=== PATIENT | male | born 1960 | race African-American/Black ===

== ENCOUNTER 2020-11-22 13:50 | Inpatient (IN) ==
[2020-11-22 17:18] LABS: ABS Eosinophils 0.2 10^3/ul (0-0.6); ABS Lymphocytes 1.3 10^3/ul (1.0-4.8); ABS Monocytes 0.6 10^3/ul (0-0.8); ABS Neutrophils 3.7 10^3/ul (1.5-7.7); Eosinophil % 2.9 %; Hematocrit 29 % (42-52); Hemoglobin 9.3 g/dL (14.0-18.0); Lymphocyte % 21.4 %; Mean Corpuscular HGB Conc 32 g/dL (31-36); Mean Corpuscular Hemoglobin 30 pg (27-31); Mean Corpuscular Volume 93 fL (80-94); Mean Platelet Volume 7.2 fL (7.4-10.4); Nucleated Red Blood Cells % 0.1; Platelet Count 281 10^3/uL (150-450); Red Cell Distribution Width 14 % (10-15); White Blood Count 5.8 10^3/uL (3.5-10.8)
[2020-11-22 18:01] LABS: Albumin 4.6 g/dL (3.2-5.2); Albumin/Globulin Ratio 1.3 (1-3); Calcium 10.1 mg/dL (8.6-10.3); Globulin 3.5 g/dL (2-4); Magnesium 1.7 mg/dL (1.9-2.7); Total Bilirubin 0.3 mg/dL (0.2-1.0); Total Protein 8.1 g/dL (6.4-8.9)
[2020-11-22 18:16] LABS: Potassium 5.1 mmol/L (3.5-5.0)
[2020-11-22 19:18] LABS: Rapid COVID-19 Molecular Undetected (Undetected)
[2020-11-22] MEDS ORDERED: Magnesium Sulfate 2 gm BAG 2 GM/50 ML BAG IVPB ONE (19:39)
[2020-11-22 19:51] LABS: Urine Appearance Clear; Urine Bilirubin Negative (Negative); Urine Blood Negative (Negative); Urine Color Straw; Urine Glucose Negative (Negative); Urine Ketones Negative (Negative); Urine Nitrite Negative (Negative); Urine Protein Negative (Negative); Urine Specific Gravity 1.005 (1.002-1.030); Urine Urobilinogen Negative (Negative)
[2020-11-22] MEDS ORDERED: Dextrose 50% Syringe 50 ml 25 GM/50 ML SYRINGE IV PUSH PRN (19:53)
[2020-11-22 19:56] LABS: Urine Bacteria Absent (Absent); Urine Red Blood Cell Absent (Absent); Urine Squamous Epithelial Cell Present (Absent); Urine White Blood Cell 1+(6-10/hpf) (Absent)
[2020-11-22] MEDS ORDERED: Lactated Ringers 1000 ml BAG 1,000 ML IV SCH ×2 (20:00→21:00)
[2020-11-22] MEDS ORDERED: Enoxaparin 30 MG/0.3 ML SYR SUBCUT SCH (20:00)
[2020-11-22 20:17] LABS: INR 1.08 (0.86-1.15)
[2020-11-22 20:41] LABS: TSH Ultra Thyroid Stim Horm 4.38 mcIU/mL (0.34-5.60)
[2020-11-22] MEDS ORDERED: NS 0.9% 1000 ml BAG 1,000 ML IV SCH (20:45)
[2020-11-22 21:21] LABS: CKMB ng/mL 1.6 ng/mL (0.6-6.3)
[2020-11-22] MEDS: Heparin 5000 UNITS/ML 1 mL VIAL SUBCUT SCH (22:51)
[2020-11-23] MEDS ORDERED: NS 0.9% 1000 ml BAG 1,000 ML IV ONE (02:07)
[2020-11-23] MEDS: Heparin 5000 UNITS/ML 1 mL VIAL SUBCUT SCH ×3 (05:14→21:35)
[2020-11-23 06:02] LABS: Urine Creatinine Concentration 126.08 mg/dL
[2020-11-23 11:15] LABS: ABS Eosinophils 0.2 10^3/ul (0-0.6); ABS Lymphocytes 1.2 10^3/ul (1.0-4.8); ABS Monocytes 0.6 10^3/ul (0-0.8); ABS Neutrophils 3.8 10^3/ul (1.5-7.7); Eosinophil % 3.3 %; Hematocrit 28 % (42-52); Lymphocyte % 19.8 %; Mean Corpuscular HGB Conc 33 g/dL (31-36); Mean Corpuscular Hemoglobin 30 pg (27-31); Mean Corpuscular Volume 93 fL (80-94); Mean Platelet Volume 7.3 fL (7.4-10.4); Platelet Count 271 10^3/uL (150-450); Red Blood Count 2.97 10^6 /uL (4.18-5.48); Red Cell Distribution Width 14 % (10-15); White Blood Count 5.8 10^3/uL (3.5-10.8)
[2020-11-23 13:07] LABS: % Iron Saturation 13 % (15-55); Iron 46 ug/dL (50-212); Total Iron Binding Capacity 351 mcg/dL (250-450); Transferrin 251 mg/dL (203-362); Unsaturated Iron Binding < 336 ug/dL
[2020-11-23 13:16] LABS: Ferritin 122.1 ng/mL (24-336)
[2020-11-23] MEDS ORDERED: Iron Sucrose 200 MG in NS 0.9% 100 ml BAG 100 ML IVPB ONE (15:12)
[2020-11-23] MEDS ORDERED: Lactated Ringers 1000 ml BAG 1,000 ML IV ONE ×2 (15:49→17:33)
[2020-11-23 18:08] LABS: Urine Appearance Clear; Urine Bilirubin Negative (Negative); Urine Blood Negative (Negative); Urine Color Straw; Urine Glucose Negative (Negative); Urine Ketones Negative (Negative); Urine Nitrite Negative (Negative); Urine Protein Negative (Negative); Urine Specific Gravity 1.006 (1.002-1.030); Urine Urobilinogen Negative (Negative)
[2020-11-23 18:15] LABS: Urine Bacteria 2+ (Absent); Urine Red Blood Cell Trace(0-2/hpf) (Absent); Urine Squamous Epithelial Cell Present (Absent); Urine White Blood Cell 2+(11-20/hpf) (Absent)
[2020-11-24] MEDS: Heparin 5000 UNITS/ML 1 mL VIAL SUBCUT SCH ×2 (05:03→16:20)
[2020-11-24 09:28] LABS: ABS Basophils 0.1 10^3/ul (0-0.2); ABS Eosinophils 0.3 10^3/ul (0-0.6); ABS Lymphocytes 1.6 10^3/ul (1.0-4.8); ABS Monocytes 0.5 10^3/ul (0-0.8); ABS Neutrophils 3.1 10^3/ul (1.5-7.7); Eosinophil % 5.3 %; Hematocrit 29 % (42-52); Hemoglobin 9.3 g/dL (14.0-18.0); Lymphocyte % 28.3 %; Mean Corpuscular HGB Conc 32 g/dL (31-36); Mean Corpuscular Hemoglobin 30 pg (27-31); Mean Corpuscular Volume 93 fL (80-94); Mean Platelet Volume 7.1 fL (7.4-10.4); Platelet Count 307 10^3/uL (150-450); Red Blood Count 3.12 10^6 /uL (4.18-5.48); Red Cell Distribution Width 14 % (10-15); White Blood Count 5.6 10^3/uL (3.5-10.8)
[2020-11-24 09:47] LABS: Albumin 4.6 g/dL (3.2-5.2); Albumin/Globulin Ratio 1.2 (1-3); Calcium 10.8 mg/dL (8.6-10.3); Globulin 3.7 g/dL (2-4); Total Bilirubin 0.4 mg/dL (0.2-1.0); Total Protein 8.3 g/dL (6.4-8.9)
[2020-11-24] MEDS ORDERED: Magnesium Hydroxide LIQ 30 ML UDC PO ONE (09:48)
[2020-11-24] MEDS ORDERED: Senna TAB 8.6 mg TAB PO ONE (09:49)
[2020-11-24 09:52] LABS: Potassium 5.1 mmol/L (3.5-5.0)
[2020-11-24] MEDS ORDERED: SODIUM ZIRCONIUM CYCLOSILICATE 10 GM PACKET PO ONE (09:55)
[2020-11-24] MEDS ORDERED: Senna TAB 8.6 mg TAB PO SCH (10:00)
[2020-11-24 12:27] VITALS: BP 125/56
[2020-11-26 12:06] LABS: Albumin 3.7 g/dL (3.4-4.7); Gamma Globulin 1.9 g/dL (0.6-1.6); Total Protein(PEP) 7.9 g/dL (6.3 - 7.9)
[2020-11-28 17:18] LABS: Renin 40 ng/mL/h
[2020-11-29 11:29] LABS: Albumin 2.6 mg/dL; Albumin/Globulin Ratio 0.48; Gamma Globulin 1.8 mg/dL; Protein,Total, Random Urine 8 mg/dL
== END 2020-11-24 16:55 | disposition home or self-care (01) | DRG 683 ==
LOC: ED 13:50 → MED 20:04 → SUATTDRO 20:04 → MED 20:56
PROVIDERS: ADMIT Internal Medicine; ATTEND Internal Medicine

== ENCOUNTER 2022-09-19 07:26 | Observation (INO) ==
[~2022-09-19 07:26] MED LIST: BUPIVACAINE **LIPOSOME/PF 13.3 MG/ML (266MG/ 20ML) VIAL (RESTRICTED) INFIL ONE; Buffered Lidocaine 1% SYRIN 1 ml INTRADERM ONE; Bupivacaine 0.25% SDV 30 ML ONE; Lactated Ringers 1000 ml BAG 1,000 ML IV SCH; Lidocaine 2% PF 5 ML VIAL ONE; Naloxone 0.4 mg VIAL 0.4 mg/ml 1 ml VIAL IV PRN; Ondansetron 4 mg VIAL 2 MG/ML 2 ml VIAL IV PRN; oxyCODONE/Acetamin 5/325 mg TAB PO PRN
[2022-09-19] MEDS ORDERED: ceFAZolin 2 GM PREMIX 2 GM/50 ML BAG ONE (08:10)
[2022-09-19] MEDS ORDERED: Midazolam 2 mg/2 ml VIAL 1 mg/ml 2 ml VIAL (2 mg) ONE ×2 (08:41→09:13)
[2022-09-19] MEDS ORDERED: Phenylephrine IV 10 MG/ML 1 ml VIAL ONE (08:43)
[2022-09-19] MEDS ORDERED: ceFAZolin VIAL VIAL ONE (09:11)
[2022-09-19] MEDS ORDERED: ceFAZolin 1 GM ADVAN 1 GM ADDV.VIAL IVPB ONE (09:12)
[2022-09-19] MEDS ORDERED: Dexamethasone IV 4 MG/ML VIAL 1 ml VIAL ONE (09:49)
[2022-09-19] MEDS ORDERED: Acetaminophen IV 1 GM/100ML 1,000 MG/100 ML BAG IV ONE ×2 (09:57→20:53)
[2022-09-19] MEDS ORDERED: Propofol 10 MG/ML 20 ML BTL ONE ×2 (10:46→11:16)
[2022-09-19] MEDS ORDERED: Tranexamic Acid 1,000 MG/10 ML SDV ONE (11:01)
[2022-09-19] MEDS ORDERED: Propofol 10 mg/ml 100 ML BTL 1,000 MG/100 ML BTL ONE (11:48)
[2022-09-19] MEDS ORDERED: Ondansetron ODT 4 mg TAB 4 MG TAB PO PRN (12:12)
[2022-09-19] MEDS ORDERED: Lactulose 30 ml UDC PO PRN (12:12)
[2022-09-19] MEDS ORDERED: Magnesium Hydroxide LIQ 30 ML UDC PO PRN (12:12)
[2022-09-19 13:16] LABS: Rapid COVID-19 Molecular Undetected (Undetected)
[2022-09-19] MEDS ORDERED: oxyCODONE/Acetamin 5/325 mg TAB ONE (13:17)
[2022-09-19] MEDS ORDERED: fentaNYL 100 mcg/2 ml 50 MCG/ML VIAL ONE (13:23)
[2022-09-19] MEDS: fentaNYL 100 mcg/2 ml 50 MCG/ML VIAL IV PRN ×2 (13:25→13:37)
[2022-09-19] MEDS: Lactated Ringers 1000 ml BAG 1,000 ML IV SCH (14:14)
[2022-09-19] MEDS: Morphine 2 MG/ML SYRINGE IV PRN (18:00)
[2022-09-19] MEDS: ceFAZolin 1 GM ADVAN 1 GM in NS 0.9% 50 ML 50 ML IVPB SCH (18:20)
[2022-09-19] MEDS: Magnesium Hydroxide LIQ 30 ML UDC PO SCH (21:45)
[2022-09-20] MEDS: Lactated Ringers 1000 ml BAG 1,000 ML IV SCH (02:44)
[2022-09-20] MEDS: ceFAZolin 1 GM ADVAN 1 GM in NS 0.9% 50 ML 50 ML IVPB SCH ×2 (02:47→10:02)
[2022-09-20] MEDS: Magnesium Hydroxide LIQ 30 ML UDC PO SCH (08:24)
[2022-09-20] MEDS: Vitamin THERAPEUTIC TAB PO SCH ×2 (08:24→08:34)
[2022-09-20] MEDS ORDERED: Empagliflozin 25 MG TAB PO SCH (09:00)
[2022-09-20] MEDS ORDERED: DULoxetine DR 30 mg CAP PO SCH (09:00)
[2022-09-20 10:02] LABS: Hematocrit 35.5 % (38-53); Hemoglobin 12.1 g/dL (13.2-16.3); Mean Platelet Volume 8.1 fL (7.5-11.2); Platelet Count 243 10^3/uL (150-450)
[2022-09-20 10:21] LABS: Calcium 9.6 mg/dL (8.6-10.3); Creatinine, Serum 1.18 mg/dL (0.67-1.17); Potassium 3.6 mmol/L (3.5-5.0); eGFR CKD-EPI 69.8 (>60)
[2022-09-20] MEDS: Morphine 2 MG/ML SYRINGE IV PRN (10:22)
[2022-09-20 10:35] VITALS: BP 128/83
== END 2022-09-20 13:45 | disposition home or self-care (01) ==
LOC: OR 07:26 → SSU 07:26
PROVIDERS: ADMIT Physician Assistant; ATTEND Orthopaedic Surgery Sports Medicine